=== PATIENT | female | born 1995 | race Caucasian/White ===

== ENCOUNTER 2017-07-19 01:17 | Emergency (ER) | payer SELFPAY ==
[~2017-07-19] VITALS: Ht 175.3 cm; Wt 68.0 kg
[~2017-07-19 01:17] MED LIST: ACYCLOVIR400 MG OR; ACYCLOVIR400 MG PO; BACTRIM DS1 TAB OR; CEPHALEXIN250 MG OR; CEPHALEXIN500 MG PO; LINDANE 1% EX; MACRODANTIN100 MG OR; NAPROSYN500 MG PO; NO HOME MEDS; NUVARING IU; PROAIR HFA IN; REMERON15 MG OR; ZOVIRAX400 MG OR; [UNRECOGNIZED DRUG - REMARK]
[2017-07-19] MEDS ORDERED: SUBUTEX PO (01:56)
[2017-07-19 03:02] LABS: URINE BILIRUBIN - DIPSTICK NEGATIVE (NEGATIVE); URINE BLOOD DIPSTICK MODERATE (NEGATIVE); URINE COLOR YELLOW; URINE GLUCOSE - DIPSTICK NEGATIVE (NEGATIVE); URINE KETONE NEGATIVE (NEGATIVE); URINE NITRITE - DIPSTICK NEGATIVE (Negative); URINE PROTEIN - DIPSTICK 100 mg/dL (NEG-TRACE); URINE SPECIFIC GRAVITY 1.025; URINE UROBILINOGEN - DIPSTICK 0.2 E.U./dL (0.2)
[2017-07-19 03:06] LABS: URINE CLARITY TURBID; URINE LEUK ESTERASE SMALL (NEGATIVE)
[2017-07-19 03:08] LABS: BARBITURATES NEGATIVE (NEGATIVE); COCAINE NEGATIVE (NEGATIVE); METHADONE NEGATIVE (NEGATIVE); TETRAHYDROCANNABIONOL NEGATIVE (NEGATIVE); TRICYLIC ANTIDEPRESSANTS NEGATIVE (NEGATIVE)
[2017-07-19 03:09] LABS: OXCYCODONE NEGATIVE (NEGATIVE); URINE BACTERIA FEW hpf; URINE SQUAMOUS EPITHELIAL CELL FEW EPI/hpf (0-FEW); URINE WBC 50-100 WBC/hpf (0-5)
[2017-07-19] MEDS ORDERED: PYRIDIUM200 MG PO (03:10)
[2017-07-19] MEDS ORDERED: CIPROFLOXACN500 MG PO (03:10)
[2017-07-19 03:30] VITALS: BP 99/69
== END 2017-07-19 03:30 | disposition home or self-care (01) | DRG 690 ==
LOC: ED 01:17
PROVIDERS: Emergency Medicine
DX: N39.0 Urinary tract infection, site not specified (principal); R30.0 Dysuria; R31.9 Hematuria, unspecified; R35.0 Frequency of micturition

== ENCOUNTER 2017-10-25 23:19 | Emergency (ER) | payer MEDICAID ==
[~2017-10-25] VITALS: Ht 175.3 cm; Wt 68.2 kg
[~2017-10-25 23:19] MED LIST changes: +CIPROFLOXACN500 MG PO; +PYRIDIUM200 MG PO; +SUBUTEX PO
[2017-10-26 00:08] VITALS: BP 114/77
== END 2017-10-26 00:11 | disposition home or self-care (01) | DRG 781 ==
LOC: ED 23:19
DX: O99.320 Drug use complicating pregnancy, unspecified trimester (principal); F11.20 Opioid dependence, uncomplicated; O99.330 Smoking (tobacco) complicating pregnancy, unspecified trimester; F17.210 Nicotine dependence, cigarettes, uncomplicated; O99.519 Diseases of the respiratory system complicating pregnancy, unspecified trimester; J45.909 Unspecified asthma, uncomplicated; Z3A.00 Weeks of gestation of pregnancy not specified; Z79.899 Other long term (current) drug therapy